=== PATIENT | female | born 1955 | race Two or more races ===

== ENCOUNTER 2024-07-04 11:04 | Outpatient (CLI) | payer MEDICARE, BC ==
--- NOTE | 2024-07-07 11:29 | CONSULTATION ---
DATE OF CONSULTATION: 07/04/2024 DICTATING PHYSICIAN: Teresita Stovall M.S., [facility]-[employer] MODIFIED BARIUM SWALLOW STUDY REPORT REFERRING PHYSICIAN: Marquis Velasquez MD HISTORY OF PRESENT ILLNESS: The patient is a 68-year-old female and consents to this evaluation. In history obtained from the patient and medical records, the patient reports symptoms of dysphagia including coughing on liquids. She notes that sometimes when she drinks that she starts to cough and cannot catch her breath. She notes that this also occurs on food and saliva. This occurs at least once a week, but is inconsistent in the amount of times it happens as sometimes this can happen a few times throughout the same day. She notes that it bothers her as she cannot catch her breath and that when this is not happening, swallowing can be painful for her as well. She also notes that this has been a gradual onset for the last 6 months, that it does not happen during a particular time for the day, but can be any time throughout the day. She reports that she has a sore throat in the morning that feels better with coffee and that she utilizes a CPAP with a humidifier. She notes that she has been excessively thirsty. For example, she had 100 ounces of water in one day recently and that she did not have any trouble when she was on vacation with her swallowing. She has lab work scheduled for 07/16 regarding GI. She has diagnoses of A-fib and hypertension. CURRENT DIET: In terms of caffeine, the patient has one cup of coffee in the morning. She used to have more, but recently cut back. She does not utilize tobacco products. In terms of alcohol, she has it very rarely, maybe once a year. Chocolate, she has 3 times weekly. In terms of dairy products, the patient has on an almost daily basis in the form of ice cream, cottage cheese, yogurt, or cheese. A typical breakfast consists of a slice of liu, 2 scrambled eggs, and toast with butter. She occasionally snacks in the morning on something such as a quarter of a bagel and banana. A typical lunch may be a ham and cheese sandwich, chicken and cheese sandwich, or roast beef on wheat with mckeon. She then has a nap right after lunch and then snacks in the afternoon on ice cream or fruit. She has dinner between 6:00 and 6:30, which may be something such as a lettuce wrap with iceberg lettuce, fluid cheese and liu, or protein and potato. She goes to bed at midnight. MEDICATIONS: Acetaminophen 500 mg one p.r.n., amlodipine 10 mg once daily orally, apixaban 5 mg one twice daily orally, atorvastatin 20 mg one daily orally, baclofen 10 mg one as needed, carvedilol 12.5 mg one tablet twice daily orally, duloxetine 60 mg one tablet once daily orally, flecainide 50 mg one tablet twice daily orally, hydralazine 25 mg one if systolic is reading over 160, isosorbide mononitrate 30 mg 24-hour tablet, one tablet once daily orally, levothyroxine 50 mcg, one tablet once daily orally, losartan 50 mg one tablet twice daily orally, niacin 500 mg one tablet once daily orally, spironolactone 25 mg one tablet once daily orally. PARAMETERS: The patient is seated in a lateral 90-degree view and administered the usual protocol of thin and nectar thick liquids, puree and solid consistencies, as well as self-regulated boluses of thin liquids from a cup. RESULTS: In the oral stage of the swallow, oral transit is characterized by adequate lingual strength, but mild to moderately reduced tongue-based retraction. There is a mild oral residue on the tongue base following initial swallow of the bolus. The patient had decreased range of motion for mastication in the oral stage of the swallow for the solid bolus.In the pharyngeal stage of the swallow, swallow initiation is delayed to the level of the piriforms for 5 mL thin liquid bolus and the level of the vallecula for the thin and thick liquid boluses. Elevation of the hyothyroid complex was accomplished with mildly reduced range of motion. There is no pharyngeal residue following the initial swallow of the bolus and PES opening is WFL. At no time is the patient noted to penetrate or aspirate on the bolus sizes or consistencies. ANTERIOR, POSTERIOR VIEW: In the AP plane, the bolus split symmetrically between the piriform sinuses and there was proximal movement of the bolus below the level of the mid sternum. IMPRESSION: The patient demonstrates with what appears to be a mild pharyngoesophageal stage swallowing disorder characterized by mild to moderately reduced tone-based retraction and proximal movement of the bolus in the AP view. DIAGNOSES: Dysphagia pharyngoesophageal phase (R13.14), cough (R05.9). PATIENT EDUCATION: Immediately following modified barium swallow study, the patient was able to view the results. The patient was able to see how the current status of the oral motor and swallowing mechanism decreases her ability to swallow normally. She was educated on the recommendation for speech therapy to strengthen the muscles of the tongue base and agreed to participate at this time. RECOMMENDATIONS: It is recommended, the patient receive swallowing therapy one time weekly for 12 weeks to improve the strength of the tongue base, to improve airway safety protection and prevent aspiration. The patient agreed to participate at this time and has been scheduled for an appointment on Saturday 07/08. LONG-TERM GOALS: The patient will maintain adequate hydration/nutrition with optimum safety and efficiency of swallow function on p.o. intake with overt signs and symptoms of aspiration, decreased from once weekly to once monthly for the highest possible diet level. PROGNOSIS: The prognosis for the patient is good in terms of motivation for therapy and willingness to learn. FUNCTIONAL ORAL INTAKE: The FOIS was administered to establish and document a change in the functional eating activities of this patient over time. This is a 7-point scale with 1 indicating no oral intake and totally tube dependent and 7 indicating total oral intake with no restrictions. This patient received a 7, which indicates total oral intake with no restrictions. G-CODE: [id number]. Thank you very much for asking me to participate in the care of this kind patient. Should you have any questions regarding this evaluation or recommendations, please do not hesitate to contact me at [phone]. During this examination, 2.53 minutes of fluoroscopy time and 18.49 CAK mGy were utilized. Teresita Stovall M.S., [facility] TID: [id number] RECEIPT: [id number] RAULITO/MARY LEUNG
== END 2024-07-04 23:59 | disposition home or self-care (01) ==
LOC: RAD 11:04
PROVIDERS: ATTEND Internal Medicine Critical Care Medicine
DX: R13.10 Dysphagia, unspecified (principal)
CPT/HCPCS: 74230